=== PATIENT | male | born 1940 | race Caucasian/White ===

== ENCOUNTER 2019-08-23 16:31 | Inpatient (IN) | payer MEDICARE, OTHER ==
[~2019-08-23] VITALS: Ht 167.6 cm; Wt 63.2 kg
[2019-08-23] MEDS ORDERED: IV NORMAL SALINE 1000 ML BAG IV ONE (17:00)
[2019-08-23 17:18] LABS: BASOPHILS # (AUTO) 0.1 K/uL (0.0-8.0); EOSINOPHILS # (AUTO) 0.1 K/uL (0.0-0.7); EOSINOPHILS % (AUTO) 1.9 % (0.0-7.0); HEMATOCRIT 40.4 % (36.7-47.1); HEMOGLOBIN 13.3 g/dL (12.5-16.3); LYMPHOCYTES # (AUTO) 1.3 K/uL (20.0-40.0); LYMPHOCYTES % (AUTO) 24.2 % (20.5-51.5); MEAN CORPUSCULAR HEMOGLOBIN 27.4 uug (23.8-33.4); MEAN CORPUSCULAR HGB CONC 33 g/dL (32.5-36.3); MEAN CORPUSCULAR VOLUME 83.3 fL (73.0-96.2); MONOCYTES # (AUTO) 0.4 K/uL (2.0-10.0); MONOCYTES % (AUTO) 6.9 % (0.0-11.0); NEUTROPHILS # (AUTO) 3.7 K/uL (1.8-8.9); PLATELET COUNT (AUTO) 217 K/uL (152-348); RED BLOOD CELL COUNT(AUTO) 4.86 MIL/uL (4.06-5.63); WHITE BLOOD COUNT (AUTO) 5.5 K/uL (3.6-10.2)
[2019-08-23] MEDS ORDERED: BISA-79 PO (17:21)
[2019-08-23] MEDS ORDERED: OMEP20TA5 PO (17:21)
[2019-08-23] MEDS ORDERED: LORA-258 PO (17:21)
[2019-08-23] MEDS ORDERED: SENN8.6T19 PO (17:21)
[2019-08-23] MEDS ORDERED: Rivastigmine PO (17:21)
[2019-08-23] MEDS ORDERED: TAMS-3 PO (17:21)
[2019-08-23] MEDS ORDERED: FINA5TAB11 PO (17:21)
[2019-08-23] MEDS ORDERED: MEMA10TA PO (17:21)
[2019-08-23] MEDS ORDERED: ISOS30TA6 PO (17:21)
[2019-08-23] MEDS ORDERED: CARB-93 PO ×2 (17:21)
[2019-08-23] MEDS ORDERED: CHOL10002 PO (17:21)
[2019-08-23] MEDS ORDERED: METO-356 PO (17:21)
[2019-08-23] MEDS ORDERED: DULO30CA2 PO (17:21)
[2019-08-23] MEDS ORDERED: CLOP75TA15 PO (17:21)
[2019-08-23] MEDS ORDERED: ROSU20TA2 PO (17:21)
[2019-08-23] MEDS ORDERED: QUET25TA PO ×2 (17:21)
[2019-08-23] MEDS ORDERED: ASPI-612 PO (17:21)
[2019-08-23] MEDS ORDERED: SENN-261 PO (17:21)
[2019-08-23] MEDS ORDERED: MIRT15TA7 PO (17:21)
[2019-08-23] MEDS ORDERED: CALC-168 PO (17:21)
[2019-08-23] MEDS ORDERED: DOCU100C36 PO (17:21)
[2019-08-23] MEDS ORDERED: ACET-2154 PO (17:21)
[2019-08-23 17:26] LABS: CREATININE 0.8 mg/dL (0.6-1.3); POTASSIUM 3.6 mmol/L (3.5-5.1)
[2019-08-23 17:41] LABS: BILIRUBIN,DIRECT 0.1 mg/dL (0.0-0.2); BILIRUBIN,TOTAL 0.3 mg/dL (0.2-1.0); TOTAL PROTEIN, SERUM 6.5 g/dL (6.4-8.2)
[2019-08-23 18:03] LABS: *BILIRUBIN,URIN 1+ (NEGATIVE); *COLOR,URINE YELLOW (YELLOW); *KETONES,URINE TRACE (NEGATIVE); LEUKOCYTE ESTERASE ,URINE NEGATIVE (NEGATIVE); NITRITE, URINE NEGATIVE (NEGATIVE); PH,URINE 6.5 (5.0-8.0); UGLUCOSE NEGATIVE (NEGATIVE)
[2019-08-23 18:15] LABS: *BLOOD, URINE TRACE (NEGATIVE)
[2019-08-23 18:16] LABS: *CLARITY,URINE SLIGHTLY HAZY (CLEAR)
[2019-08-23 18:17] LABS: MUCUS,URINE MANY /LPF (0-FEW); SQUAMOUS EPITHELIAL CELL,UR FEW /HPF (NONE SEEN); WBC,URINE 0-3 /HPF (0-3)
--- NOTE | 2019-08-23 18:31 | NUR ---
Kyree VARGAS TO ADMIT TO M/S DX: FEVER OF UNKNOWN ORIGIN R/O COVID MRSA AND COVID SAMPLE SWAB TAKEN ON ISOLATION/DROPLET/AIRBORNE PRECATIONS MONITORED ACCORDINGLY
--- NOTE | 2019-08-23 18:52 | NUR ---
NO RECEIVING RN AVAILABLE YET FOR M/S FLOOR PT RA JORDANA DE LA PAZ PREC
--- NOTE | 2019-08-23 19:13 | NUR ---
LINDA ALEJANDRO SANCHEZKELLY [phone]
--- NOTE | 2019-08-23 19:20 | NUR ---
SPEAKS FRENCH HAND OFF AND SBAR GIVEN TO BOARD STACKER
--- NOTE | 2019-08-23 19:49 | NUR ---
CALLED FOR REPORT NURSE. WILL CALLBACK. PATIENT IN BED NOT IN ANY DISTRESS.
--- NOTE | 2019-08-23 20:00 | NUR ---
PATIENT IN BED SLEEPING. NOT IN ANY DISTRESS ISOLATION PRECAUTIONS.
[2019-08-23] MEDS ORDERED: ALBUTEROL SULFATE 8 GM HFA.AER.AD IH PRN (20:15)
[2019-08-23] MEDS ORDERED: HYDROCODONE/APAP 5-325MG TABLET PO PRN (20:15)
[2019-08-23] MEDS ORDERED: ONDANSETRON 4 MG/2 ML VIAL IV PRN (20:15)
[2019-08-23] MEDS: QUETIAPINE FUMARATE 25 MG TABLET PO SCH (21:00)
[2019-08-23] MEDS ORDERED: RIVASTIGMINE 3 MG PO SCH (21:00)
[2019-08-23] MEDS: DULOXETINE 30 MG CAPSULE.DR PO SCH (21:00)
[2019-08-23] MEDS: ENOXAPARIN SODIUM 40 MG/0.4 ML DISP.SYRIN SQ SCH (21:00)
[2019-08-23] MEDS: MIRTAZAPINE 15 MG TABLET PO SCH (21:00)
[2019-08-23] MEDS: CARBIDOPA/LEVODOPA 25-100MG TABLET PO SCH (21:00)
[2019-08-23] MEDS: RIVASTIGMINE TARTRATE 3 MG CAPSULE PO SCH (21:00)
[2019-08-23] MEDS: ATORVASTATIN 40 MG TABLET PO SCH (21:00)
[2019-08-23] MEDS: LORAZEPAM 0.5 MG TABLET PO SCH (21:00)
--- NOTE | 2019-08-23 21:20 | NUR ---
Pt. admitted to [facility] , under care of CORINE ROYAL Belongs List completed
--- NOTE | 2019-08-23 21:56 | NUR ---
Patient arrived on floor.
[2019-08-23 22:00] VITALS: BP 142/85
--- NOTE | 2019-08-23 22:00 | NUR ---
2100h medications not given, patient was absent from floor and was not admitted to 212 until 2155.
--- NOTE | 2019-08-23 22:00 | NUR ---
PATIENT RECEIVED INTO CARE VIA GURNEY FROM ER. PATIENT IS ALERT/ORIENTED X2 AND HAS NO COMPLAINTS OF PAIN/DISCOMFORT AT THIS TIME. ALL PERTINENT ASSESSMENTS COMPLETED. ALL SAFETY, FALL, AND ISOLATION PRECAUTIONS ARE IN PLACE. CALL LIGHT AND PERSONAL ITEMS ARE WITHIN REACH AT ALL TIMES. WILL CONTINUE TO MONITOR AND ASSESS.
[2019-08-24 04:56] VITALS: BP 143/96
--- NOTE | 2019-08-24 05:35 | NUR ---
patient pulled out left AC saline loc IV cath.
--- NOTE | 2019-08-24 05:57 | NUR ---
SON FROM [place] CALLED AND REQUESTED UPDATE ON PT. NURSE EXPLAINED PT HAS BEEN RESTING COMFORTABLY AND ALL VS HAVE BEEN WNL. SON WANTED TO KNOW WHEN PT WILL BE SENT BACK TO [facility]. NURSE EXPLAINED THAT IF COVID RESULTS ARE NEGATIVE AND PT HAS NO OTHER HEALTH ISSUES NEEDING TO BE ADDRESSED, HE MAY GO BACK TO ORIGINAL FACILITY. NURSE ALSO EXPLAINED THAT IF RESULTS ARE POSITIVE, PT WILL BE TREATED PER DOCTOR'S ORDERS. SON SAID OK.
--- NOTE | 2019-08-24 06:00 | NUR ---
PATIENT SLEPT INTERMITTENTLY THROUGHOUT NIGHT WITH NO COMPLAINTS OF PAIN OR ACUTE DISTRESS VERBALIZED OR NOTED/OBSERVED BY NURSE. PATIENT IS ALERT ORIENTED X2 WITH BOUTS OF CONFUSION. ALL PRESCRIBED MEDICATIONS PROVIDED ORDERED AND TOLERATED WELL. ALL SAFETY, FALL, AND ISOLATION PRECAUTIONS REMAIN IN PLACE. CALL LIGHT AND PERSONAL ITEMS REMAIN WITHIN REACH AT ALL TIMES.
[2019-08-24] MEDS: PANTOPRAZOLE SODIUM 40 MG TABLET.DR PO SCH (06:26)
[2019-08-24 06:53] LABS: BASOPHILS # (AUTO) 0.1 K/uL (0.0-8.0); BASOPHILS % (AUTO) 0.7 % (0.0-2.0); EOSINOPHILS # (AUTO) 0.2 K/uL (0.0-0.7); EOSINOPHILS % (AUTO) 1.9 % (0.0-7.0); HEMATOCRIT 41.6 % (36.7-47.1); LYMPHOCYTES # (AUTO) 1.3 K/uL (20.0-40.0); LYMPHOCYTES % (AUTO) 15.7 % (20.5-51.5); MEAN CORPUSCULAR HEMOGLOBIN 27.8 uug (23.8-33.4); MEAN CORPUSCULAR HGB CONC 34 g/dL (32.5-36.3); MEAN CORPUSCULAR VOLUME 82.5 fL (73.0-96.2); MONOCYTES # (AUTO) 0.5 K/uL (2.0-10.0); MONOCYTES % (AUTO) 5.8 % (0.0-11.0); NEUTROPHILS # (AUTO) 6.1 K/uL (1.8-8.9); NEUTROPHILS % (AUTO) 75.9 % (38.5-71.5); PLATELET COUNT (AUTO) 178 K/uL (152-348); RED BLOOD CELL COUNT(AUTO) 5.04 MIL/uL (4.06-5.63); WHITE BLOOD COUNT (AUTO) 8.1 K/uL (3.6-10.2)
--- NOTE | 2019-08-24 07:00 | NUR ---
PER PT'S SON, PT IS NORMALLY ON A PUREE DIET. NURSE CALLED DIETARY AND LEFT MESSAGE REGARDING KOSHER PUREE DIET FOR PT. SWALLOW EVAL REQUEST PLACED BY NURSE ON ADMISSION.
[2019-08-24 07:10] LABS: BILIRUBIN,TOTAL 0.7 mg/dL (0.2-1.0); CREATININE 0.6 mg/dL (0.6-1.3); MAGNESIUM 1.9 mg/dL (1.8-2.4); PHOSPHOROUS 2.9 mg/dL (2.5-4.9); POTASSIUM 3.4 mmol/L (3.5-5.1); TOTAL PROTEIN, SERUM 6.4 g/dL (6.4-8.2)
[2019-08-24 07:17] LABS: THYROID STIMULATING HORMONE 2.003 mIU/mL (0.358-3.740)
[2019-08-24] MEDS ORDERED: POTASSIUM CHLORIDE 20 MEQ TAB.PRT.SR PO ONE (07:45)
[2019-08-24 08:30] VITALS: BP 137/89
[2019-08-24] MEDS ORDERED: Medication Not On Formulary EA (Calcium Carbonate/Vitamin D3 (Calcium + Vitamin D Tablet PO SCH (09:00)
[2019-08-24] MEDS ORDERED: Medication Not On Formulary EA (Omeprazole 1 TAB) PO SCH (09:00)
[2019-08-24] MEDS ORDERED: Medication Not On Formulary EA (Rosuvastatin Calcium (Crestor) 1 TAB) PO SCH (09:00)
[2019-08-24] MEDS: ISOSORBIDE MONONITRATE 30 MG TAB.SR.24H PO SCH (09:02)
[2019-08-24] MEDS: RIVASTIGMINE TARTRATE 3 MG CAPSULE PO SCH ×2 (09:03→21:15)
[2019-08-24] MEDS: BISACODYL 5 MG TABLET.DR PO SCH (09:03)
[2019-08-24] MEDS: DOCUSATE SODIUM 250 MG CAPSULE PO SCH ×2 (09:04→17:14)
[2019-08-24] MEDS: METOPROLOL TARTRATE 25 MG TABLET PO SCH ×2 (09:04→21:00)
[2019-08-24] MEDS: CALCIUM CARB/VITAMIN D 500MG-200UNITS TABLET PO SCH (09:04)
[2019-08-24] MEDS: CLOPIDOGREL 75 MG TABLET PO SCH (09:04)
[2019-08-24] MEDS: MEMANTINE HCL 10 MG TABLET PO SCH ×2 (09:04→17:14)
[2019-08-24] MEDS: FINASTERIDE 5 MG TABLET PO SCH (09:04)
[2019-08-24] MEDS: ASPIRIN 325 MG TABLET PO SCH (09:04)
[2019-08-24] MEDS: TAMSULOSIN HCL 0.4 MG CAP.SR.24H PO SCH (09:04)
[2019-08-24] MEDS: CHOLECALCIFEROL 400 UNITS TABLET PO SCH (09:05)
[2019-08-24 15:37] VITALS: BP 131/80
[2019-08-24] MEDS ORDERED: QUETIAPINE FUMARATE 25 MG TABLET PO SCH (18:00)
[2019-08-24] MEDS ORDERED: ACETAMINOPHEN 325 MG TABLET PO SCH (18:00)
[2019-08-24] MEDS ORDERED: CARBIDOPA/LEVODOPA 25-100MG TABLET PO SCH (18:00)
--- NOTE | 2019-08-24 18:30 | NUR ---
EOS Note: No acute event during this shift. Pt. remained stable, afebrile and in no acute distress. Pt. with baseline confusion, A/OX1 only to self. Incontinence care rendered, x1 small BM this shift. Skin intact, no new skin condition noted. Started LFA PIV 22g and wrap with coflex due to pt. pulling out lines. Notified [employer] that pt. has poor PO intake, encourage pt. to drink supplemental ensure but pt. refused. Assisted with feeding time but pt. refused meal. Pt. seen today by ST and downgraded diet to puree/thin liquid (Kosher). No new order at this time from provider. Pt. remain on droplet/contact/eye protection precaution for R/O COVID-19. Safety measures in place. Call light and all frequently used items within pt. reach. Will endorse to oncoming shift accordingly. Addendum: 08/24/19 at 1854 by AMRITA ENGLISH RN Received D5 1/2ns @ 50cc/hr from [employer]. Orders noted and carried out
[2019-08-24] MEDS: IV D5 1/2 NS 1000 ML 1,000 ML IV PRN (19:00)
--- NOTE | 2019-08-24 19:45 | NUR ---
NURSE RECEIVED CALL FROM SON, LINDA, REQUESTING CURRENT STATUS OF FATHER. NURSE PROVIDED CURRENT UPDATE AND EXPLAINED STILL WAITING FOR COVID-19 TEST RESULTS. SON PROVIDE CONTACT PHONE NUMBER [phone] SON WANTS TO BE NOTIFIED WHEN COVID RESULTS COME IN.
--- NOTE | 2019-08-24 20:00 | NUR ---
PATIENT RECEIVED INTO CARE, LAYING BED RESTING COMFORTABLY. PATIENT HAS NO S/S OF ACUTE DISTRESS OR DISCOMFORT NOTED OR OBSERVED BY NURSE. IV SITE IS PATENT AND INTACT AND RUNNING PRESCRIBED IV FLUIDS. ALL SAFETY, FALL, AND ISOLATION PRECAUTIONS ARE IN PLACE. CALL LIGHT AND PERSONAL ITEMS ARE WITHIN REACH AT ALL TIMES. WILL CONTINUE TO MONITOR AND ASSESS.
[2019-08-24 20:39] VITALS: BP 104/66
[2019-08-24] MEDS: DULOXETINE 30 MG CAPSULE.DR PO SCH (21:14)
[2019-08-24] MEDS: CARBIDOPA/LEVODOPA 25-100MG TABLET PO SCH (21:16)
[2019-08-24] MEDS: QUETIAPINE FUMARATE 25 MG TABLET PO SCH (21:17)
[2019-08-24] MEDS: MIRTAZAPINE 15 MG TABLET PO SCH (21:17)
[2019-08-24] MEDS: LORAZEPAM 0.5 MG TABLET PO SCH (21:17)
[2019-08-24] MEDS: ATORVASTATIN 40 MG TABLET PO SCH (21:17)
[2019-08-24] MEDS: ENOXAPARIN SODIUM 40 MG/0.4 ML DISP.SYRIN SQ SCH (21:19)
--- NOTE | 2019-08-24 22:12 | NUR ---
Review of admission H&P by GENNY Rangel, patient is supposed to be Telemetry. Notified charge. Tele box will be sent down to apply to patient.
[2019-08-25 00:04] VITALS: BP 127/85
[2019-08-25 04:12] VITALS: BP 123/68
--- NOTE | 2019-08-25 06:00 | NUR ---
Patient slept intermittently throughout night with no complaints of pain or discomfort verbalized. All prescribed medications provided as ordered and tolerated well with no adverse side effects noted/observed by nurse. All safety, fall, and isolation orders remain in place.
[2019-08-25] MEDS: PANTOPRAZOLE SODIUM 40 MG TABLET.DR PO SCH (06:36)
--- NOTE | 2019-08-25 08:00 | NUR ---
Received patient in bed, awake and verbally responsive. No signs of distress noted. NO SOB. Saturating 96% on Room Air. Afebrile. No complain of pain or discomfort. On contact and droplet isolation for R/o covid 19, awaiting for result. Proper PPE strictly Observed. Kept clean and comfortable. Will continue to monitor.
[2019-08-25] MEDS: ASPIRIN 325 MG TABLET PO SCH (08:34)
[2019-08-25] MEDS: DOCUSATE SODIUM 250 MG CAPSULE PO SCH (08:34)
[2019-08-25] MEDS: RIVASTIGMINE TARTRATE 3 MG CAPSULE PO SCH (08:35)
[2019-08-25] MEDS: METOPROLOL TARTRATE 25 MG TABLET PO SCH (08:35)
[2019-08-25] MEDS: TAMSULOSIN HCL 0.4 MG CAP.SR.24H PO SCH (08:35)
[2019-08-25] MEDS: ISOSORBIDE MONONITRATE 30 MG TAB.SR.24H PO SCH (08:35)
[2019-08-25] MEDS: BISACODYL 5 MG TABLET.DR PO SCH (08:35)
[2019-08-25] MEDS: CHOLECALCIFEROL 400 UNITS TABLET PO SCH (08:36)
[2019-08-25] MEDS: CLOPIDOGREL 75 MG TABLET PO SCH (08:36)
[2019-08-25] MEDS: FINASTERIDE 5 MG TABLET PO SCH (08:36)
[2019-08-25] MEDS: MEMANTINE HCL 10 MG TABLET PO SCH (08:36)
[2019-08-25] MEDS: CALCIUM CARB/VITAMIN D 500MG-200UNITS TABLET PO SCH (08:36)
[2019-08-25 11:00] VITALS: BP 108/69
--- NOTE | 2019-08-25 11:00 | NUR ---
Received a Negative Covid19 result, GENNY Caal made aware.
[2019-08-25] MEDS: IV D5 1/2 NS 1000 ML 1,000 ML IV PRN (11:26)
--- NOTE | 2019-08-25 12:00 | NUR ---
Patient with Discharge Order to [facility].
--- NOTE | 2019-08-25 14:16 | NUR ---
Patient with is awake and verbally responsive. No signs of distress noted. No SOB. saturating 96% on Room Air, Afebrile. No comlain of Pain or discomfort. Resulted Negative from Covid 19. Patient with Discharge Order to [facility], Dischatge Instruction given, unable to verbalized Understanding d/t mental condition. All belongings was sent with Patient, Removed Wrist band, roll cutting operator and IV site. Patient was discharged and picked up [facility] in stable condition.
[2019-08-25] MEDS ORDERED: ALBUTEROL SULFATE 2.5 MG/3 ML NEBU NEB PRN (14:30)
== END 2019-08-25 14:20 | DRG 864 ==
LOC: ER 16:34 → MED 21:10 → TELE 08-25 00:31
PROVIDERS: ADMIT Nurse Practitioner Acute Care; ATTEND Nurse Practitioner Acute Care
DX: R50.9 Fever, unspecified (principal); G93.41 Metabolic encephalopathy; D68.69 Other thrombophilia; Z74.09 Other reduced mobility; R40.2242 Coma scale, best verbal response, confused conversation, at arrival to emergency department; R40.2362 Coma scale, best motor response, obeys commands, at arrival to emergency department; R40.2142 Coma scale, eyes open, spontaneous, at arrival to emergency department; E87.6 Hypokalemia; E78.5 Hyperlipidemia, unspecified; G20 Parkinson's disease; I25.10 Atherosclerotic heart disease of native coronary artery without angina pectoris; I25.2 Old myocardial infarction; K21.9 Gastro-esophageal reflux disease without esophagitis; Z79.82 Long term (current) use of aspirin; F32.9 Major depressive disorder, single episode, unspecified; I50.9 Heart failure, unspecified; I11.0 Hypertensive heart disease with heart failure; F02.80 Dementia in other diseases classified elsewhere, unspecified severity, without behavioral disturbance, psychotic disturbance, mood disturbance, and anxiety; R73.9 Hyperglycemia, unspecified; N40.0 Benign prostatic hyperplasia without lower urinary tract symptoms; M62.84 Sarcopenia
CPT/HCPCS: 36415; 70030-TC; 71045; 83605; 83735; 84100; 84443; 85025; 85730; 87040; 87086; 93005; A4663; C1758; G0378; J1650; J3535; J7030